=== PATIENT | male | born 1990 | race Caucasian/White ===

== ENCOUNTER 2018-10-07 10:08 | Emergency (ER) | payer SELFPAY ==
[~2018-10-07] VITALS: Ht 170.1 cm; Wt 63.5 kg
[2018-10-07 10:26] LABS: BILIRUBIN NEGATIVE (NEGATIVE); BLOOD NEGATIVE (NEGATIVE); CLARITY CLEAR (CLEAR); COLOR YELLOW (YELLOW); GLUCOSE NEGATIVE (NEGATIVE); KETONE NEGATIVE (NEGATIVE); LEUKO ESTERASE NEGATIVE (NEGATIVE); NITRITE NEGATIVE (NEGATIVE); UROBILINOGEN 0.2 E.U./dl (0.2-1.0)
[2018-10-07 10:54] LABS: BACTERIA 1+; MUCOUS TRACE
[2018-10-08 22:04] LABS: GONOCOCCUS BY NAA Negative (Negative)
== END 2018-10-07 11:10 | disposition home or self-care (01) ==
LOC: ED 10:08
PROVIDERS: Nurse Practitioner Family
DX: Z11.3 Encounter for screening for infections with a predominantly sexual mode of transmission (principal); Z91.030 Bee allergy status

== ENCOUNTER 2019-04-26 09:42 | Emergency (ER) | payer SELFPAY ==
[~2019-04-26] VITALS: Ht 170.1 cm; Wt 61.2 kg
[2019-04-26 11:20] LABS: BASO # 0.1 10*3/uL (0.0-0.1); BASO % 0.7 % (0.0-1.0); EOS # 0.4 10*3/uL (0.0-0.4); EOS % 4.9 % (1.0-4.0); HEMATOCRIT 44.3 % (42.0-52.0); LYMPH # 2.1 10*3/uL (1.3-4.4); LYMPH % 28.1 % (27.0-41.0); MEAN CELL VOLUME 89.1 fl (80.0-94.0); MEAN CORPUSCULAR HGB 30.2 pg (27.0-31.0); MEAN CORPUSCULAR HGB CONC 33.9 g/dl (33.0-37.0); MEAN PLATELET VOLUME 10.4 fl (9.6-12.3); MONO # 0.7 10*3/uL (0.1-1.0); MONO % 9.7 % (3.0-9.0); NEUT # 4.2 10*3/uL (2.3-7.9); NEUT % 56.3 % (47.0-73.0); PLATELET COUNT AUTOMATED 226 10*3/uL (130-400); RED BLOOD COUNT 4.97 10*6/uL (4.50-5.90); WHITE BLOOD COUNT 7.4 10*3/uL (4.8-10.8)
[2019-04-26 11:35] LABS: ALBUMIN 4.3 gm/dl (3.1-4.5); ALKALINE PHOSPHATASE 86 U/L (45-117); BUN 18 mg/dl (7-24); CHLORIDE 106 mmol/L (98-107); CREATININE 0.88 mg/dL (0.70-1.30); LIPASE 45 U/L (73-393); POTASSIUM 3.7 mmol/L (3.5-5.1); SGOT/AST 22 IU/L (3-35); SGPT/ALT 24 U/L (12-78); SODIUM 139 mmol/L (136-145); TOTAL PROTEIN 7.3 gm/dL (6.4-8.2)
[2019-04-26] MEDS ORDERED: IBUPROFEN600 MG PO (14:41)
== END 2019-04-26 15:10 | disposition home or self-care (01) ==
LOC: ED 09:42
PROVIDERS: Physician Assistant
DX: S60.221A Contusion of right hand, initial encounter (principal); K29.21 Alcoholic gastritis with bleeding; F17.200 Nicotine dependence, unspecified, uncomplicated; Z91.030 Bee allergy status; W51.XXXA Accidental striking against or bumped into by another person, initial encounter; Y93.89 Activity, other specified; Y92.89 Other specified places as the place of occurrence of the external cause; Y99.8 Other external cause status

== ENCOUNTER 2020-02-15 19:28 | Emergency (ER) | payer SELFPAY ==
[~2020-02-15] VITALS: Ht 170.1 cm; Wt 65.8 kg
[~2020-02-15 19:28] MED LIST: IBUPROFEN600 MG PO
[2020-02-15] MEDS ORDERED: AUGMENTIN 875-875 MG PO (21:39)
== END 2020-02-15 21:50 | disposition home or self-care (01) ==
LOC: ED 19:28
DX: K02.9 Dental caries, unspecified (principal)